=== PATIENT | male | born 1985 | race African-American/Black ===

== ENCOUNTER 2019-11-07 02:35 | Inpatient (IN) | payer SELFPAY ==
[~2019-11-07] VITALS: Ht 190.5 cm; Wt 152.0 kg
[2019-11-07] MEDS ORDERED: MAGNESIUM 2 G PREMIX 50 ML IV STA (02:37)
[2019-11-07] MEDS ORDERED: METHYLPREDNISOLONE SOD SUCC 125 MG/2 ML VIAL IV STA (02:37)
[2019-11-07] MEDS ORDERED: ALBUTEROL (0.083%) 2.5MG/3ML NEB HHN STA (02:37)
[2019-11-07] MEDS ORDERED: IPRATROPIUM BROMIDE (0.02%) 0.5MG/2.5ML NEB HHN STA (02:37)
[2019-11-07] MEDS ORDERED: EPINEPHRINE 1:1000 1 MG/ML AMP IM ONE (02:45)
[2019-11-07 03:28] LABS: HEMATOCRIT 42.2 % (42.0-52.0); HEMOGLOBIN 14.2 g/dL (14.0-18.0); MEAN CORPUSCULAR HEMOGLOBIN 30.1 pg (28.0-32.0); MEAN CORPUSCULAR VOLUME 89.2 fL (80.0-94.0); PLATELET 427 x1000/uL (130-400); RED BLOOD CELL COUNT 4.73 mill/uL (4.7-6.1); RED CELL DISTRIBUTION WIDTH 13.4 % (11.6-14.6)
[2019-11-07 03:36] LABS: CHLORIDE 106 mEq/L (98-107)
[2019-11-07] MEDS ORDERED: ONDANSETRON HCL 4MG/2ML INJ IV PRN (09:00)
[2019-11-07] MEDS ORDERED: CLONIDINE 0.1MG TABLET PO PRN (09:00)
[2019-11-07] MEDS ORDERED: ACETAMINOPHEN 325MG TABLET PO PRN (09:00)
[2019-11-07] MEDS ORDERED: MAGNESIUM/ALUMINUM HYDROXIDE/SIMETHICONE 30ML UDC PO PRN (09:00)
[2019-11-07] MEDS ORDERED: GUAIFENESIN 200MG/10ML SUGAR FREE UDC PO PRN (09:00)
[2019-11-07] MEDS ORDERED: NITROGLYCERIN 0.4MG TABLET SL SL PRN (09:00)
[2019-11-07] MEDS ORDERED: IPRATROPIUM/ALBUTEROL 0.5-3(2.5)MG/3ML NEB NEB PRN (09:00)
[2019-11-07] MEDS ORDERED: LORAZEPAM 0.5MG TABLET PO PRN (09:00)
[2019-11-07] MEDS ORDERED: ZOLPIDEM TARTRATE 5MG TABLET PO PRN (09:00)
[2019-11-07] MEDS ORDERED: FAMOTIDINE 40MG TABLET PO SCH (09:30)
[2019-11-07] MEDS ORDERED: ENOXAPARIN 30MG/0.3ML SYR SUBCUT SCH (09:45)
[2019-11-07] MEDS: IPRATROPIUM/ALBUTEROL 0.5-3(2.5)MG/3ML NEB HHN SCH ×3 (09:48→20:25)
[2019-11-07 10:00] VITALS: BP 123/69
[2019-11-07] MEDS ORDERED: METHYLPREDNISOLONE SOD SUCC 125 MG/2 ML VIAL IV SCH (10:00)
[2019-11-07] MEDS ORDERED: LEVOFLOXACIN 500MG PREMIX 100 ML IV SCH (10:00)
[2019-11-07 11:00] VITALS: BP 123/69
[2019-11-07] MEDS ORDERED: ALBU6.7H9 INH (11:42)
[2019-11-07 12:00] VITALS: BP 124/57
[2019-11-07] MEDS: GUAIFENESIN/DM 600MG/30MG ER TAB 12HR PO SCH ×2 (12:28→22:27)
[2019-11-07] MEDS: FAMOTIDINE 40MG TABLET PO SCH ×2 (12:28→22:28)
[2019-11-07] MEDS: ENOXAPARIN 30MG/0.3ML SYR SUBCUT SCH ×2 (12:40→22:28)
[2019-11-07] MEDS ORDERED: INFLUENZA VIRUS VACCINE(AFLURIA) 0.5ML SYR IM ONE (14:00)
[2019-11-07] MEDS ORDERED: PNEUMOCOCCAL 23-VAL P-SAC VAC 0.5 ML IM ONE (14:00)
[2019-11-07 14:57] LABS: CREATINE KINASE 517 IU/L (39-308)
[2019-11-07 14:58] LABS: CREATINE KINASE MB FRACTION 10.7 ng/mL (0.5-3.6)
[2019-11-07] MEDS: LEVOFLOXACIN 500MG PREMIX 100 ML IV SCH (15:46)
[2019-11-07] MEDS: METHYLPREDNISOLONE SOD SUCC 125 MG/2 ML VIAL IV SCH ×2 (15:47→22:28)
[2019-11-07 16:00] VITALS: BP 118/77
[2019-11-07 20:00] VITALS: BP 119/68
[2019-11-08] VITALS: BP 138/58
[2019-11-08 00:45] LABS: CREATINE KINASE 593 IU/L (39-308)
[2019-11-08 00:47] LABS: CREATINE KINASE MB FRACTION 16.4 ng/mL (0.5-3.6)
[2019-11-08] MEDS: IPRATROPIUM/ALBUTEROL 0.5-3(2.5)MG/3ML NEB HHN SCH ×7 (01:09→22:38)
[2019-11-08 04:00] VITALS: BP 126/65
[2019-11-08] MEDS: METHYLPREDNISOLONE SOD SUCC 125 MG/2 ML VIAL IV SCH ×3 (05:36→22:14)
[2019-11-08 08:00] VITALS: BP 112/50
[2019-11-08] MEDS: ENOXAPARIN 30MG/0.3ML SYR SUBCUT SCH (10:07)
[2019-11-08 12:00] VITALS: BP 135/51
[2019-11-08] MEDS: FAMOTIDINE 20MG TABLET PO SCH ×2 (12:16→22:15)
[2019-11-08] MEDS: GUAIFENESIN/DM 600MG/30MG ER TAB 12HR PO SCH ×2 (12:17→22:15)
[2019-11-08] MEDS: LEVOFLOXACIN 500MG PREMIX 100 ML IV SCH (12:17)
[2019-11-08 16:00] VITALS: BP 128/49
[2019-11-08 20:00] VITALS: BP 136/64
[2019-11-08] MEDS: ENOXAPARIN 40MG/0.4ML SYR SUBCUT SCH (22:15)
[2019-11-09] VITALS: BP 116/62
[2019-11-09] MEDS: IPRATROPIUM/ALBUTEROL 0.5-3(2.5)MG/3ML NEB HHN SCH ×4 (00:26→11:48)
[2019-11-09 04:00] VITALS: BP 119/62
[2019-11-09] MEDS: METHYLPREDNISOLONE SOD SUCC 125 MG/2 ML VIAL IV SCH (06:21)
[2019-11-09 08:00] VITALS: BP 119/68
[2019-11-09] MEDS: FAMOTIDINE 20MG TABLET PO SCH (09:00)
[2019-11-09] MEDS: ENOXAPARIN 40MG/0.4ML SYR SUBCUT SCH (09:00)
[2019-11-09] MEDS: GUAIFENESIN/DM 600MG/30MG ER TAB 12HR PO SCH (10:29)
[2019-11-09 10:56] VITALS: BP 119/68
[2019-11-09] MEDS: LEVOFLOXACIN 500MG PREMIX 100 ML IV SCH (11:29)
[2019-11-09 12:00] VITALS: BP 128/68
[2019-11-09 16:00] VITALS: BP 125/84
== END 2019-11-09 12:10 | disposition home or self-care (01) | DRG 140 ==
LOC: ER 02:35 → 5WST 03:06 → EDBEDREQSVC 09:20 → ENRESERV 09:35
PROVIDERS: ADMIT Internal Medicine; ATTEND Internal Medicine
PROC: 5A09357 Assistance with Respiratory Ventilation, Less than 24 Consecutive Hours, Continuous Positive Airway Pressure (ICD-10-PCS; principal; 2019-11-07)
PROC: 5A09357 Assistance with Respiratory Ventilation, Less than 24 Consecutive Hours, Continuous Positive Airway Pressure (ICD-10-PCS; 2019-11-08)
DX: J44.1 Chronic obstructive pulmonary disease with (acute) exacerbation (principal); J96.00 Acute respiratory failure, unspecified whether with hypoxia or hypercapnia; E66.01 Morbid (severe) obesity due to excess calories; F17.210 Nicotine dependence, cigarettes, uncomplicated; Z79.899 Other long term (current) drug therapy; Z68.41 Body mass index [BMI] 40.0-44.9, adult
CPT/HCPCS: 36415; 71045; 80061; 82550; 82553; 83036; 83880; 84484; 85027; 90686; 90732; 93970; 94640; 96365; 99291; C1893; J1650; J1956; J2930; J3475; J3490; J7611; J7620